=== PATIENT | female | born 1985 | race Caucasian/White ===

== ENCOUNTER 2018-12-12 17:27 | Emergency (ER) | payer MEDICAID ==
[~2018-12-12] VITALS: Ht 180.3 cm; Wt 99.8 kg
--- NOTE | 2018-12-12 17:27 | NUR ---
PT EDELMIRASELJigar FROM HOME FOR PSYCH EVAL FOR VOLUNTARY ADMISSION AT [facility]. PT AAOX4, COOEPRATIVE, PER PT, FEELS VERY DEPRESSED. PT ON MONITOR, VSS, PENDING MD SALEH
--- NOTE | 2018-12-12 18:09 | NUR ---
URINE COLLECTED AND SENT TO LAB
[2018-12-12 18:23] LABS: APPEARANCE,URINE Clear (CLEAR); BILIRUBIN,URINE Negative (NEGATIVE); BLOOD, URINE Negative Ery/uL (NEGATIVE); COLOR,URINE Yellow (YELLOW); KETONES,URINE Negative (NEGATIVE); LEUKOCYTE ESTERASE ,URINE Negative (NEGATIVE); NITRITE, URINE Negative (NEGATIVE); PROTEIN,URINE Negative (NEGATIVE); UGLUCOSE Negative (NEGATIVE); UROBILINOGEN,URINE 0.2 EU/dL (0.2)
[2018-12-12 18:32] LABS: BASOPHILS # (AUTO) 0.1 /CMM (0.0-0.2); BASOPHILS % (AUTO) 1.2 % (0.0-2.0); EOSINOPHILS % (AUTO) 1.6 % (0.0-6.0); HEMATOCRIT 42 % (33-45); HEMOGLOBIN 13.9 g/dL (11.5-14.8); LYMPHOCYTES # (AUTO) 1.6 /CMM (0.8-4.8); LYMPHOCYTES % (AUTO) 28.8 % (20.0-44.0); MEAN CORPUSCULAR HGB CONC 33 g/dl (31.0-36.0); MEAN CORPUSCULAR VOLUME 88 fL (82-100); MONOCYTES # (AUTO) 0.5 /CMM (0.1-1.30); MONOCYTES % (AUTO) 9.7 % (2.0-12.0); NEUTROPHILS # (AUTO) 3.2 /CMM (1.8-8.9); NEUTROPHILS % (AUTO) 58.7 % (43.0-81.0); PLATELET COUNT (AUTO) 253 /CMM (150-450); RED BLOOD CELL COUNT(AUTO) 4.77 MIL/uL (4.0-5.2); WHITE BLOOD COUNT (AUTO) 5.5 K/uL (4.3-11.0)
[2018-12-12 18:51] LABS: CARBON DIOXIDE 30 mmol/L (21-32); CHLORIDE 104 mmol/L (98-107); CREATININE 0.7 mg/dL (0.6-1.3); GLUCOSE 90 mg/dL (74-106); POTASSIUM 3.8 mmol/L (3.5-5.1); SODIUM SERUM 141 mmol/L (136-145); UREA NITROGEN, BLOOD 10 mg/dL (7-18)
[2018-12-12 18:57] LABS: ACETAMINOPHEN 0 ug/ml (10-30); ALANINE AMINOTRANSFERASE 25 U/L (12-78); ALBUMIN 3.7 g/dL (3.4-5.0); ALCOHOL, BLOOD < 3 mg/dL (0-0); ALKALINE PHOSPHATASE 91 U/L (46-116); ASPARTATE AMINOTRANSFERASE 13 U/L (15-37); BILIRUBIN,DIRECT 0.1 mg/dL (0.0-0.2); BILIRUBIN,TOTAL 0.4 mg/dL (0.2-1.0); SALICYLATE 3.1 mg/dL (2.8-20.0); TOTAL PROTEIN, SERUM 7.6 g/dL (6.4-8.2)
--- NOTE | 2018-12-12 19:26 | NUR ---
CALLED EDMOND NIXON 1HR
--- NOTE | 2018-12-12 19:53 | NUR ---
GWENDOLYN RN/CLINICAL FELLOW IS AT THE BEDSIDE FOR EVAL.
--- NOTE | 2018-12-12 20:49 | NUR ---
JULITA VN: CALL FOR REPORT [phone] EXT [phone]
--- NOTE | 2018-12-12 20:51 | NUR ---
CALLED [facility] FOR TRANSPORT ETA OF 2124 WAS GIVEN. TRIP#[id number]
--- NOTE | 2018-12-12 21:05 | NUR ---
report given to tracy knight formerly [facility] vn
--- NOTE | 2018-12-12 21:41 | NUR ---
REPORT GIVEN TO NITO 119 FOR CONTINUITY OF CARE. PT AWARE OF TRANSPORT. PT VSS. PT WITH ALL PERSONAL BELONGINGS. PER NITO TOOK OVER CARE PT TO BE TRANSFERRED VIA GURNEY TO [facility].
[2018-12-12 21:43] VITALS: BP 128/80
== END 2018-12-12 21:48 ==
LOC: ER 17:32
DX: Z04.6 Encounter for general psychiatric examination, requested by authority (principal); F43.10 Post-traumatic stress disorder, unspecified; F31.9 Bipolar disorder, unspecified; F12.10 Cannabis abuse, uncomplicated
CPT/HCPCS: 36415; 80048; 80076; 80305; 80307; 80329; 81001; 84703; 85025; 99285; A4606; G0480; Z7610; 81000-TC